=== PATIENT | male | born 2000 | race Caucasian/White ===

== ENCOUNTER 2021-10-11 08:56 | Day surgery (SDC) | payer OTHER ==
[~2021-10-11] VITALS: Ht 177.8 cm; Wt 67.2 kg
[~2021-10-11 08:56] MED LIST: EMTR1TAB8 PO; HEPARIN 1,000 UNIT in IV NORMAL SALINE 1,000 ML for SURG PERIOP IRR ONE; HYDROmorphone 2 MG/ML VIAL IVP PRN; IV RINGERS,LACTATED 1000ML 1,000 ML IV SCH; PANT40TA77 PO; PROCHLORPERAZINE 10 MG/2 ML VIAL. IVP PRN; fentaNYL PF VIAL 100 MCG/2 ML VIAL IVP PRN
[2021-10-11 09:25] VITALS: BP 130/81
[2021-10-11] MEDS ORDERED: BUPIVACAINE-EPI 0.5% 30 ML VIAL KIT. ONE (09:47)
[2021-10-11] MEDS ORDERED: IOHEXOL 300 MG/ML 50 ML VIAL. ONE (09:47)
[2021-10-11] MEDS ORDERED: BISACODYL 10 MG SUPP.RECT. ONE (09:47)
[2021-10-11] MEDS ORDERED: SURGICEL HEMOSTAT 4X8 EACH. ONE (09:47)
[2021-10-11] MEDS ORDERED: ONDANSETRON PF 4 MG/2 ML VIAL. ONE (09:52)
[2021-10-11] MEDS ORDERED: KETOROLAC 30 MG/ML VIAL. ONE (09:52)
[2021-10-11] MEDS ORDERED: SEVOFLURANE 61 TO 120 MINUTES. IH ONE (09:52)
[2021-10-11] MEDS ORDERED: GLYCOPYRROLATE 1 MG/5 ML VIAL. ONE (09:52)
[2021-10-11] MEDS ORDERED: PROPOFOL 10 MG/ML (20ML) VIAL. IV ONE (09:52)
[2021-10-11] MEDS ORDERED: DEXAMETHASONE SOD PHOS 4 MG/ML VIAL ONE (09:52)
[2021-10-11] MEDS ORDERED: LIDOCAINE 2% PF 5 ML VIAL. ONE (09:52)
[2021-10-11] MEDS ORDERED: ROCURONIUM 50 MG/5 ML VIAL. ONE (09:53)
[2021-10-11] MEDS ORDERED: MIDAZOLAM HCL/PF 2 MG/2 ML VIAL. ONE (09:53)
[2021-10-11] MEDS ORDERED: fentaNYL PF VIAL 100 MCG/2 ML VIAL ONE (09:53)
[2021-10-11] MEDS ORDERED: NEOSTIGMINE METHYLSULFATE 5 MG/5 ML SYRINGE. ONE (09:53)
--- NOTE | 2021-10-11 10:36 | PDOC ---
SURGICAL PROGRESS NOTE DATE: 10/11/21 TIME: 10:34 Subjective 21 yo M with biliary dyskinesia and chronic cholecystitis. TO OR for laparoscopic versus open cholecystectomy with cholangiogram. R/R/B/A d/w pt and pt's supportive mother. Risks, including, but not limited to: bleeding, infection, damage to surrounding structures, risk of anesthesia, risk of open. They appear to understand, their questions are answered and they elect to proceed. Office note H&P reviewed and unchanged. Vital Signs Vital Signs Date Time Temp Pulse Resp B/P (MAP) Pulse Ox O2 Delivery O2 Flow Rate FiO2 10/11/21 09:29 97.9 78 18 130/81 97 Room Air 97.9 Justicifation of Admission Dx: Justifications for Admission: Justification of Admission Dx: N/A AMY STERN MD Oct 11, 2021 10:36
[2021-10-11] MEDS ORDERED: ESMOLOL 100 MG/10 ML VIAL. IVP ONE (10:55)
--- NOTE | 2021-10-11 11:41 | RAD ---
EXAM: INTRAOPERATIVE CHOLANGIOGRAM. HISTORY: Gallbladder disease. Intraoperative cholangiogram with cholecystectomy. COMPARISON: None. FINDINGS: 2 fluoroscopic images are obtained intraoperatively during injection of the cystic duct rem nant after cholecystectomy. There are no filling defects to suggest retained stones. The common duct is not dilated. Fluoroscopy time 0.12 minutes. IMPRESSION: 1. No evidence of retained stones. Electronically signed by: Debbi Fuentes MD (10/11/2021 11:39 AM) [id number]
[2021-10-11] MEDS ORDERED: MORPHINE SULFATE 2 MG/ML INJ. ONE (12:40)
[2021-10-11] MEDS: MORPHINE SULFATE 2 MG/ML INJ. IVP PRN ×2 (12:43→12:53)
--- NOTE | 2021-10-11 12:47 | PDOC4 ---
OPERATIVE NOTE Date: Date: Oct 11, 2021 Pre-Op Diagnosis: Chronic cholecystitis Post-Op Diagnosis: same Procedure Performed: laparoscopic cholecystectomy with cholangiogram Surgeon: Kiel Stern Anesthesia Type: GETA plus local Blood Loss: 50 Specimans Obtained: gallbladder Findings: adhesions to gallbladder, appendix surgically absent, normal cholangiogram Complications: none Operative Note: After obtaining informed consent, patient was taken to OR, induced under GETA and prepped in the usual fashion. 5 mm ports placed umbilical, RUQ and epigastric, all under laparoscopic guidance. Abdominal cavity was explored and noted as above. Gallbladder was grasped and take off liver in dome down fashion using cautery. Cystic artery ligated with clips. Cholangiogram obtained via cystic duct (only remaining structure) and was normal in appearance. Cystic duct controlled with hemolok and clips. Gallbladder evacuated of bile and removed from epigastric port, passed off field and sent to pathology. Copious irrigation. No evidence of bleeding or other pathology. Ports removed without bleeding. Skin repaired with 4 0 monocryl. Dressing placed. Patient tolerated procedure well and sent to PACU in stable condition. All counts correct. Wound class is 3. AMY STERN MD Oct 11, 2021 12:47
[2021-10-11] MEDS ORDERED: DOCU-109 PO (12:49)
[2021-10-11] MEDS ORDERED: OXYC-325 PO (12:49)
[2021-10-11 12:55] VITALS: BP 142/90
[2021-10-11] MEDS ORDERED: oxyCODONE/APAP 5/325 1 TAB TABLET PO ONE (13:00)
--- NOTE | 2021-10-16 12:09 | PATHOLOGY ---
[facility] Accession Number: [id number] . 01 Material submitted: . gallbladder - GALLBLADDER WITH CONTENTS . 01 Clinical history: . LAP JG CHOLECYSTITIS . 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 - Cholesterolosis. - Negative for malignancy. (MLK/db; 10/13/2021) LBQ 10/13/2021 1637 Local . 02 Electronically signed: . Kiel Zaragoza MD, Pathologist NPI- [id number] . 01 Gross description: . Fixative: Formalin Labeled: Gallbladder with contents Specimen received: Previously opened cholecystectomy specimen Dimensions: 7.0 x 2.6 x 1.8 cm Serosa: [place]-ram and smooth with a full-thickness defect in the cystic neck measuring 1.0 x 0.3 cm Lymph node: Not present Mucosa: Red-brown and velvety Average wall thickness: 0.1 cm Calculi: Calculi are not present within the gallbladder or container Abnormalities: None identified A1- [employer] Worker body, fundus, and the cystic duct margin. ([facility]; 10/12/2021) SY/[facility] 10/12/2021 0908 Local . 02 Pathologist provided ICD-10: K81.1, K82.4 . 02 CPT . 552914 Specimen Comment: A courtesy copy of this report has been sent to [phone], [phone] Specimen Comment: [id number] Specimen Comment: Report sent to / DR AGARWAL Specimen Comment: A duplicate report has been generated due to demographic updates. Performed at: [address], [place], [place] [id number] MD Kranthi Philippe MD Phone: [phone] Performed at: [address] [id number] MD Chino Hall MD Phone: [phone]
== END 2021-10-11 13:30 | disposition home or self-care (01) ==
LOC: SURG 08:56
PROVIDERS: ATTEND Surgery
DX: K81.1 Chronic cholecystitis (principal); K21.9 Gastro-esophageal reflux disease without esophagitis; Z79.899 Other long term (current) drug therapy; Z98.890 Other specified postprocedural states; Z72.89 Other problems related to lifestyle; Z88.8 Allergy status to other drugs, medicaments and biological substances
CPT/HCPCS: 47563; 74300; A4213; A4314; A4930; A6219; C1887; J0690; J1100; J1644; J1885; J2250; J2270; J2405; J2704; J2710; J3010; J3490; J7030; Q9967; 88304